=== PATIENT | male | born 2000 | race Caucasian/White ===

== ENCOUNTER → 2019-10-18 17:26 | Outpatient (CLI) | payer OTHER, SELFPAY | PROVIDERS: PCP Family Medicine; Referring Provider Family Medicine; Visit Provider Family Medicine | DX: Z20.828 Contact with and (suspected) exposure to other viral communicable diseases (principal) | CPT/HCPCS: 87635; C9803; U0003 ==

== ENCOUNTER 2020-08-18 09:00 | Outpatient (RCR) | payer OTHER, SELFPAY ==
--- NOTE | 2020-08-18 10:15 | BH.SGPN.GN ---
Behaviors/Verbalizations/Mental Status: [] Eye contact is good. Motor activity is appropriate. Appearance is neat. Speech is Appropriate. Mood is anxious. Affect is congruent. Thoughts are linear and logical. No evidence of psychosis. Client Response/Progress/Benefit: [] Pt was an active participant in group discussion and activity. Attentive during psychoeducation. Had difficulty staying on topic at times and often rambled. Engaged and provided feedback during activity where group had to identify 10 positives and 10 negatives of a picture. Provided thoughts on how one's perspective is formed and with the group identified several ways such as; upbringing, trauma, environment, friends, past events, fear, medical issues, physical pain, and mental health disorders. Along with her peers identified how one's perspective can negatively impact mental health treatment leading to; risky behaviors, suicidal thoughts, self-harming, isolation, avoiding treatment, shutting down, and can also cause one to stop taking medications. Provided input into how a positive or realistic perspective can help decrease depression, improve relationship, increase hope, and increase motivation. Increased awareness and discussion on the role that perspective has on mental health was beneficial. Will continue in IOP to maintain safety, prevent decompensation, and stabilize mood. Narrative Note: []
--- NOTE | 2020-08-18 11:01 | BH.COMM_ITS ---
Communication Note - Communication with Client Communication Note: Met with patient to completed initial paperwork. No si gnificant changes since pre-admission screening. Completed [facility]. Last suicidal thought occurred last week. Reports this was fleeting and passive in nature. Denies any plan or intent. Has hx of thoughts of methods, denies any current. Does not present as imminent danger. Protective factors. Future-oriented.
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
--- NOTE | 2020-08-19 09:00 | BH.SGPN.GN ---
Behaviors/Verbalizations/Mental Status: []Client alert and oriented, casually dressed and groomed. Eye contact good. Motor activity appropriate. Speech within normal limits. Affect constricted, mood anxious and sad. Thoughts linear, logical, no signs of hallucinations or delusions. Client Response/Progress/Benefit: []Client responded well to session, attentive and interrupting at times, but able to be redirected. Client recently started IOP and he hopes to work on reducing suicidal ideations and better managing his mental health symptoms. Client reports I have issues with keeping jobs and boundaries. Client stated he is always anxious but today he is also feeling a little sad. Appeared to benefit from the social aspect of group. Will continue IOP tx to prevent decompensation, increase impulse control, and learn healthy coping skills. Narrative Note: []
[2020-08-19 10:01] VITALS: BP 140/86; PULSE 100
--- NOTE | 2020-08-19 10:10 | BH.SGPN.GN ---
Behaviors/Verbalizations/Mental Status: []Client alert and oriented, casually dressed and groomed. Eye contact good. Motor activity appropriate. Speech within normal limits. Affect congruent. Mood euthymic. Thoughts linear, logical, no signs of hallucinations or delusions. Client Response/Progress/Benefit: []Client responded well to session, attentive and frequently contributing to discussion. Client worked with the group to identify factors that contributed to how we define ourselves. Client reported he has experienced the impacts of mental health stigma. Client reported mental health stigma has led him to denial of needing help because he didn't want to admit there was a problem. Client seemed to benefit from increased awareness of how mental health stigma can impact progress and self-worth. Client to continue IOP tx to improve daily functioning, improve interpersonal skills and prevent decompensation. Narrative Note: []
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
--- NOTE | 2020-08-19 12:51 | BH.DR.ITP ---
Initial Treatment Plan Patient Information Visit Information: ADMISSION DATE: EXPECTED LOS: 4-6 weeks Problems/Symptoms Problem #1:: Depression Symptom:: Sadness, worthlessness, hopelessness, shame, passive thoughts of , biological disruption of sleep, decreased appetite Problem #2:: Anxiety Symptom:: Worry, rumination
--- NOTE | 2020-08-20 09:05 | BH.SGPN.GN ---
Behaviors/Verbalizations/Mental Status: [] Eye contact is good. Motor activity is appropriate. Appearance is casual. Speech is Appropriate. Mood is anxious. Affect is congruent. Thoughts are linear and logical. No evidence of psychosis. Reviewed daily check in sheet and pt reports 2/5 for depression and 0/5 for risk. Client Response/Progress/Benefit: [] Pt was an active participant in group discussion. Attentive. Provided feedback to peers on several occasions. Daily symptom tracker noted 2/5 for depression and anxiety. Pt was very engaged and involved in group discussions and feedback with peers however did not share much about himself during the check-in. He mentioned that since starting IOP he has been doing well however attributes this primarily to not being home. States that he does have to return home this evening. He perceives his family to not be supportive and to blame him for many things. Emotion for today is anxious. Progress reported by patients. Benefited from group support and encouragement. Will continue in IOP to maintain safety, stabilize mood, and improve support and social skills. Narrative Note: []
--- NOTE | 2020-08-20 10:10 | BH.SGPN.GN ---
Behaviors/Verbalizations/Mental Status: [] Client alert and oriented, casually dressed and groomed. Eye contact good. Motor activity appropriate. Speech within normal limits, at times tangential. Affect congruent, mood anxious and euthymic. Thoughts linear, logical, no signs of hallucinations or delusions. Client Response/Progress/Benefit: [] Pt was an active participant in group discussion and completed group worksheet. Provided appropriate feedback and shared how learning how to manage his anger has been something that he struggles with but is actively working on. Group worked together to define anger and discussed the ways anger can impact one internally and externally. Pt reported that anger can be triggered by external situations, other people, and disappointment in oneself. Pt completed the iceberg exercise and identified emotions that tend to ?live under the surface? of anger. Pt also gained awareness of his typical responses to anger which included: shutting down, swearing, being sarcastic, or starting arguments. Pt acknowledges that anxiety or feeling dismissed often leads to anger for him. Benefited from group by increasing understanding of the impact of anger on mental health. Recommended continued tx to improve emotion regulation skills, prevent decompensation, and continue to work on improving social skills. Narrative Note: []
--- NOTE | 2020-08-20 15:39 | BH.MTP_ITS ---
Master Treatment Plan - Patient Information Program Physician:: Dr. Odonnell Primary Therapist:: Fely Delgado, [facility] - Psychiatric Diagnoses Psychiatric Diagnoses:: 1. Major depressive disorder, recurrent, severe without psychosis. 2. Generalized anxiety disorder. 3. ADHD. 4. Rule out Asperger's syndrome Diagnosis Code(s):: F33.2 - Estimated LOS Estimated LOS (in weeks):: 6 Problem/Goal #1 - Problem/Goal #1 Stated Goal:: Client will decrease depressive symptoms, isolation, and agitation due to Major Depressive Disorder through Intensive Outpatient Program.? Description of Barriers: Potential barriers include impulsivity, negative thought patterns, shame, and guilt. Functional Impact: Pt endorses feeling depressed, hopelessness, worthlessness, decreased sleep, poor motivation, decreased concentration. Pt reports anxious thoughts, ruminations, and racing thoughts. Mental health symptoms have impacted his ability to maintain employment. Pt has lost 10 jobs since graduating from high school. Pt's mental health symptoms impact his social and familial rel ationships. - Objectives Objective #1 Stated Objective: Client will learn and utilize 2-3 healthy coping strategies to manage depressive symptoms. Interventions: Therapist will utilize CBT techniques to assist client with understanding the connection between thoughts, feelings and behaviors. Education will be provided on behavioral activation. Therapist will assist client in learning internal coping strategies to manage depressive symptoms, along with helping client identify triggers. Discharge Criteria: Client will have achieved this goal when can verbalize and practiced at least 2 healthy coping strategies that successfully manage depressive symptoms. Target Date: 09/29/20 Review Date: 09/15/20 Objective #2 Stated Objective: To develop at least 3 skills that are important for effective social functioning. Interventions: Explaining the relationship between events and one?s behavior and their consequences. Assisting pt with understanding the inappropriateness of one?s behavior, including the assumptions and emotions that form that behavior, and then generating potential solutions. Teaching pt interpersonal skills. Discharge Criteria: Pt has met this goal when can identify and successfully utilize at least 3 skill that improve social functioning. Target Date: 09/29/20 Review Date: 09/15/20 Problem/Goal #2 - Problem/Goal #2 Stated Goal:: Stabilize anxiety level while increasing ability to function on daily basis.? Description of Barriers: Potential barriers include impulsivity, negative thought patterns, shame, and guilt. Functional Impact: Pt endorses feeling depressed, hopelessness, worthlessness, decreased sleep, poor motivation, decreased concentration. Pt reports anxious thoughts, ruminations, and racing thoughts. Mental health symptoms have impacted his ability to maintain employment. Pt has lost 10 jobs since graduating from high school. Pt's mental health symptoms impact his social and familial relationships. - Objectives Objective #1 Stated Objective: Client will learn and implement 2-3 calming skills to reduce overall anxiety and manage anxiety symptoms.?? Interventions: Therapist will teach client calming/relaxation skills and how to apply these skills to everyday life.? Discharge Criteria: Client will have achieved this goal when can verbalize at least 2 calming strategies and have practiced techniques to help reduce anxiety. Target Date: 09/29/20 Review Date: 09/15/20 Objective #2 Stated Objective: Pt will decrease anxious symptoms AEB pt?s score on the DSM 5 cross-cutting measure improve pt?s daily functioning. Interventions: Through groups and individual therapy, pt will be provided education about anxiety?s impact on body and common physiological reaction to anxiety. Therapist will teach pt appropriate breathing techniques and build healthy coping skills to manage daily anxieties. Discharge Criteria: Pt will have met this goal when pt?s score on the DSM 5 cross cutting measure for anxiety has been decreased and per pt?s report daily functioning has improved. Target Date: 09/29/20 Review Date: 09/15/20
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
--- NOTE | 2020-08-24 10:15 | BH.SGPN.GN ---
Behaviors/Verbalizations/Mental Status: []Eye contact is good. Motor activity is appropriate. Appearance is casual. Speech is Appropriate. Mood is anxious. Affect is congruent. Thoughts are linear and logical. No evidence of psychosis. Client Response/Progress/Benefit: []Pt was an active participant in group discussion and activity. Attentive during psychoeducation on factors that build resiliency. Worked with peers to define resilience and shared ?resilience is not giving up and always bouncing back.? Along with peers also identified what could impact resilience which included: family, internal coping skills, beliefs, hope, and personality type. Pt reports support from his family and challenging negative thoughts make pt resilient. Pt benefited by increasing awareness on the role of resilience in mental health and factors that can help build resiliency. Will continue in IOP to increase impulse control, learn healthy coping skills, and increase healthy support. Narrative Note: []
--- NOTE | 2020-08-24 14:22 | BH.MDN_ITS ---
Multi-Disciplinary Note - Note 60-min Individual Time Started:: 11:10 Date: 08/24/20 Purpose of session/treatment goals addressed:: Purpose of session was to address goals 1 and 2 from MTP. Eye Contact:: Fair Motor Activity:: Appropriate Appearance:: Casual Speech:: Appropriate Mood:: Anxious Affect:: Full Staff Interventions:: Therapiast used open ended questions to elicit pt's current symptoms and stressors. Therapist reviewed homework of stopping and thinking before he says something that he is unsure is appropriate. Therapist used CBT techniques to help pt understand connection between thoughts, behaviors and feelings. Problem solved with pt about upcoming stressor. Coached pt throughout session on appropriate interpersonal skills. Provided support by using active listening and providing feedback. Client Response:: Pt reported when he was in a depressed state a few days ago he often gets stuck in his head. Pt stated he starts to feel like nothing is going to get better and he will never be happy. Pt stated today he is able to recogniz e those thoughts are irrational but struggles with seeing that in the moment. Responded well to education about connection between thoughts, behaviors and emotions. Pt shared feeling anxious about going to visit his aunt and cousin. Pt reported he needs to have a conversation with his aunt about his criminal history because he isn't supposed to be alone with minors. Pt stated his cousin is 14 years old and would like to hang out but needs permission from his aunt. Pt reported he had a panic attack this morning when thinking about having this conversation. Pt responded well to problem solving and support from therapist. Pt agreed he is going to have to have difficult conversations in order to build his support system. Risks/Concerns:: Denies suicidal/homicidal ideation, plan or intention to date. Progress Toward Goals/Plan:: Progress noted with pt reporting use of his visual aid stop sign to help him think before he talks. Pt reports improved mood and increased self-awareness. Pt continues to struggle with interpersonal skills, bouts of depression, and anxiety. Pt to continue IOP to increase consistent use of coping skills, challenge distorted thoughts and prevent decompensation. Time Stopped:: 12:10
--- NOTE | 2020-08-26 09:00 | BH.SGPN.GN ---
Behaviors/Verbalizations/Mental Status: []Eye contact is good. Motor activity is appropriate. Appearance is casual. Speech is Appropriate-interrupting at times. Mood is euthymic. Affect is full. Thoughts are linear and logical. No evidence of psychosis. Reviewed daily check in sheet and pt denies any suicidal ideations or thoughts of today. Client Response/Progress/Benefit: []Client responded well to session, attentive and giving feedback to peers. Client reports feeling eager this morning as client's mood has improved, he no longer feels suicidal, and he gained additional healthy supports recently. Client shared that earlier this week he was suicidal, but getting out of the house and coming to IOP has helped. Client reports his biggest stressor is finding a job which client reports is hard with his legal background. Appeared to benefit from reflecting on positives and progress noted in reduced SI. Will continue IOP tx to promote mood stability and gain healthy coping skills. Narrative Note: []
--- NOTE | 2020-08-26 11:15 | BH.SGPN.GN ---
Behaviors/Verbalizations/Mental Status: []Client alert and oriented, casually dressed and groomed. Eye contact good. Motor activity appropriate. Speech within normal limits. Affect congruent, mood euthymic. Thoughts linear, logical, no signs of hallucinations or delusions. Client Response/Progress/Benefit: []Client engaged in session AEB listening attentively to others and providing input throughout discussions. Client remained attentive during discussion about the 4 A's of managing stress and discussed connecting with the various benefits of each. Client reported he would like to work on the skill of accepting what is out of his control. Client stated this will be helpful to decrease stress because he often ruminates on what is out of his control. Client seemed to benefit from increased awareness of the impact of stress on mental health and increasing repertoire of stress management strategies. Will continue IOP tx to prevent decompensation, improve interpersonal skills, and increase healthy coping skills. Narrative Note: []
--- NOTE | 2020-08-26 12:15 | PCM.BH.PN_ITS ---
Progress Note Progress Note: History of Present Illness/Interim History: [] The patient is a 20-year-old single male with a history of anxiety, depression and ADHD and possible Asperger's who is seen in follow-up at the [facility] behavioral health IOP program. I last saw the patient 1 week ago. The patient asked to be seen today as he feels that his sleep is not optimal. He states that it sometimes hard to get to sleep and sometimes he did he wakes up during the night. He feels that at times he is unable to sleep due to worrying but other times he is not sure why. He denies any caffeine use at all. He states that his mood has been good mostly in the past week. He still feels overall depressed and anxious. He feels less hopeless than a week ago and feels the program is benefiting him. He still has occasional passive thoughts that he would not care if he . He denies any suicidal ideation, plan for suicide, homicidal ideation, hallucinations, delusions or symptoms of bessie. Current Psychiatric Medications: [] Atomoxetine 40 mg p.o. twice daily; Paxil 30 mg p.o. daily (x1 year) Mental Status Examination: [] The patient is a 20-year-old male who appears normal for stated age and is casually dressed and groomed with good hygiene. He is pleasant and cooperative during the interview. Eye contact is good and speech is normal rate and rhythm and fluent with no pressure. Mood is mildly depressed. Affect is full and normal. Thought process is goal-directed and organized. Thought content: There is evidence of passive thoughts of but there is no evidence of suicidal or homicidal ideation or plan for suicide. There is no evidence of hallucinations, delusions or symptoms of bessie. Intelligence is average or above. Judgment is limited. Insight is limited but improving. Impulsivity is moderate to high. Diagnoses: [] 1. Major depressive disorder, recurrent, moderate 2. Generalized anxiety disorder 3. ADHD 4. Rule out asked Buerger's syndrome 5. Primary support, legal and work issues Plan: [] The patient will continue the IOP program in behavioral health as the structure, support, education and group therapy will hopefully prevent worsening of the patient's symptoms. He felt safe during the interview and if he does not feel safe at some time he will let us know or go to the emergency room. The risk, options, possible complications and side effects of the medications were again discussed with the patient and he understands and accepts these. Prescription was sent in for melatonin 10 mg p.o. nightly to help with the patient sleep. He has taken trazodone in the past and does not wish to take it again as he felt hung over on it. I will see the patient in follow-up in 2 weeks. He will continue to follow-up with his outpatient providers.
--- NOTE | 2020-08-27 09:01 | BH.SGPN.GN ---
Behaviors/Verbalizations/Mental Status: []Pt eye contact good, casually dressed, motor activity appropriate, speech normal rate and tone, mood euthymic, congruent affect, thoughts linear and intact, no evidence of delusions or hallucinations. Reviewed client?s symptom tracker, no signs of suicidal ideation, plan, or intent as of today. Client Response/Progress/Benefit: []Pt responded well to session AEB pt listening attentively to peers, and openly sharing thoughts and feelings. Pt shared mental health positive as showering this morning, brushing teeth, and completing personal hygiene. Pt reported additional mental health positive as sleeping well last night, which he stated has been a struggle for him. Pt shared he gained more support from his aunt and cousin. Pt stated his conversation about his past legal history with his aunt went very well and is relieved to have more support. Pt seemed to benefit from expressing thoughts. Pt to continue IOP to improve healthy coping skills, practice interpersonal skills and prevent decompensation. Narrative Note: []
--- NOTE | 2020-08-27 10:02 | BH.SGPN.GN ---
Behaviors/Verbalizations/Mental Status: []Eye contact is good. Motor activity is appropriate. Appearance is casual. Speech is Appropriate. Mood is anxious, euthymic. Affect is congruent. Thoughts are linear and logical. No evidence of psychosis. Client Response/Progress/Benefit: [] Pt was an attentive participant and actively engaged throughout group discussion and activity. Did well to share the floor with fellow participants. Attentive during psychoeducation and taking notes. Reflected connecting with topic of personal pitfalls and how they can impede mental health treatment progress. Pt shared that avoidance could lead to continuing to maintain depression. Expressed ?stress can lead to change? by providing us with more motivation. Pt and peers provided examples of personal pitfalls or setbacks that impact mental health which included; isolation, avoidance, procrastination, denial, poor self-care, and ruminating on externals. During experiential activity pt along with peers identified several pitfalls from the activity that are also associated with mental health which included; poor communication, assumptions, lack of awareness, negative self-talk, fear of failure, and personalizing. Did well to take direction and feedback from peers during experiential activity. Benefited from group by increasing awareness of pitfalls which can impact mental health. Pt will continue in [facility] to continue to work on socialization, further improve mood stability, and promote healthy skill application. Narrative Note: []
--- NOTE | 2020-08-27 11:00 | BH.SGPN.GN ---
Behaviors/Verbalizations/Mental Status: []Client alert and oriented, casually dressed and groomed. Eye contact good. Motor activity appropriate. Speech within normal limits. Affect constricted, mood dysthymic. Thoughts linear, logical, no signs of hallucinations or delusions. Client Response/Progress/Benefit: []Client receptive of session, engaged throughout AEB client actively listening and contributing to discussion, as well as taking notes. Client completed worksheet identifying personal pitfalls impacting mental health progress. Client identified the following pitfalls: isolation, lack of self-care, shame, mind-reading, and what if thinking. Group learned different coping skills to help manage pitfalls. Client will work on overcoming isolation and lack of self-care by establishing a routine and using opposite action. Benefited from identifying personal pitfalls and strategies to overcome these pitfalls. Will continue IOP tx to increase impulse control skills, gain awareness, and gain healthy supports. Narrative Note: []
--- NOTE | 2020-08-31 09:00 | BH.SGPN.GN ---
Behaviors/Verbalizations/Mental Status: []Client alert and oriented, casually dressed and groomed. Eye contact good. Motor activity restless. Speech within normal limits for client. Affect constricted, mood euthymic and anxious. Thoughts linear, logical, no signs of hallucinations or delusions. Reviewed client?s symptom tracker, no risk for suicidal ideation, plan, or intent as of 08/31/20 Client Response/Progress/Benefit: []Client responded well to session, providing input to peers and redirected when needed. Client reports feeling anxious and optimistic this morning. Client stated he is always anxious but he cannot remember a specific stressor at the moment. Client shared his weekend was really good as client had time for self-care and he made a new friend recently. Client also has been using his deep breathing skills and he brushed his teeth this morning. Appeared to benefit from reflecting on application of coping skills. Can continue to work on impulse control and healthy boundaries. Will continue IOP tx to promote mood stability, gain healthy coping skills, and gain healthy support. Narrative Note: []
--- NOTE | 2020-08-31 10:15 | BH.SGPN.GN ---
Behaviors/Verbalizations/Mental Status: [] Eye contact is good. Motor activity is appropriate, at times appearing restless. Appearance is casual. Speech is Appropriate. Mood is anxious, euthymic. Affect is congruent. Thoughts are linear and logical. No evidence of psychosis. Client Response/Progress/Benefit: [] Pt was an active participant in group discussion and activity. Attentive during psychoeducation on external coping skills and how coping skills can positively and negatively impact mental health. Reported often struggling to remind himself that ?If we have a load too heavy for us to carry, it?s okay to let others help to carry it.?. Provided insight into consequences this has had on mental health by isolating or minimizing. Pt along with peers provided their thoughts and insights on the definition of coping skills. Pt worked with peers to identify barriers to using healthy coping skills which included; it?s easier, comfortable, habitual, or they don?t know other ways of coping. Worked within small group to complete challenge activity requiring use of several coping skills. Did well to provide and receive supportive feedback. Benefited from increased awareness of coping skills, benefits in using healthy coping skills, and common coping skill barriers. Will continue in IOP to improve social skills, stabilize mood, and increase heathy coping. Narrative Note: []
--- NOTE | 2020-08-31 11:15 | BH.SGPN.GN ---
Behaviors/Verbalizations/Mental Status: []Client alert and oriented, casual dress, hygiene tended to. Eye contact good. Motor activity appropriate. Speech within normal limits. Affect congruent, mood euthymic. Thoughts linear, logical, no signs of hallucinations or delusions. Client Response/Progress/Benefit: []Client responded well to session, actively listening and providing examples. Group discussed the different categories of coping skills which included distraction, emotional release, grounding, self-love, and thought challenging. Client participated in creating a coping skills ?menu? from the five categories of coping skills. Client's coping skill menu included: walking, exercise, music, earthing, identifying wins, and boundaries. Appeared to benefit from increasing repertoire of healthy coping skills. Will continue tx to continue practicing interpersonal skills, consistent use of healthy coping and prevent decompensation.
--- NOTE | 2020-09-01 10:16 | BH.SGPN.GN ---
Behaviors/Verbalizations/Mental Status: [] Client alert and oriented, casually dressed and groomed. Eye contact good. Motor activity restless. Speech within normal limits. Affect congruent, mood anxious. Thoughts linear, logical, no signs of hallucinations or delusions. Client Response/Progress/Benefit: [] Pt actively engaged in group discussion on conflict and the potential benefits of healthy approaches to conflict on mental health as well as barriers in taking a healthy approach to conflict resolution. Pt connected to fellow participants as they reflected on quote. Shared ?conflict can sometimes create a greater urgency to learn ways to cope?. Pt attentive and engaged during psychoeducation about different conflict styles (avoidant, accommodating, cooperative, and competing). Pt identified most often uses avoiding styles for conflict, noting ??I?m definitely avoiding at home. I don?t like the environment, so I just go up to my room and lock myself in my room?. Seemed to benefit from increased awareness of the different conflict styles. Pt to continue IOP to continue use of healthy coping skills, continue improving mood stability and social skills, and prevent decompensation. Narrative Note: []
--- NOTE | 2020-09-01 11:15 | BH.SGPN.GN ---
Behaviors/Verbalizations/Mental Status: []Client alert and oriented, casually dressed and groomed. Eye contact good. Motor activity appropriate. Speech within normal limits. Affect constricted, mood anxious. Thoughts linear, logical, no signs of hallucinations or delusions. Client Response/Progress/Benefit: []Client engaged in session AEB contributing to discussion and engaging in activity. Client did well to review current conflict style and its impact on mental health. Attentive and taking notes during discussion on strategies for more effectively managing conflict in personal life. Client identified that avoiding is his ?default? conflict resolution type. Client wants to work on changing this by expressing his feelings and needs through words and avoiding degrading language when addressing conflict. Appeared to benefit from gaining strategies to help client better manage conflict. Will continue IOP tx to improve emotional regulation skills, increase impulse control, and gain healthy support. Narrative Note: []
--- NOTE | 2020-09-01 15:55 | BH.MDN_ITS ---
Multi-Disciplinary Note - Note 60-min Individual Time Started:: 09:00 Date: 09/01/20 Purpose of session/treatment goals addressed:: Purpose of session was to address goals 1 and 2 from MTP. Eye Contact:: Good Motor Activity:: Appropriate Appearance:: Casual Speech:: Appropriate, Pressured - at times Mood:: Euthymic, Anxious Affect:: Congruent Thoughts:: Logical, Racing, No evidence of hallucinations/delusions noted Staff Interventions:: Therapist used open ended questions to elicit pt's current symptoms and stressors. Reviewed interpersonal skills and cautioned pt to not interact with current IOP pt's. Assisted pt with managing stressor of intera ctions with parents. Elicited goal for week. Provided support by using active listening and providing feedback. Client Response:: Pt reported last night he could not sleep which made his mind wander. Pt stated when he has down time is when he struggles with negative thoughts the most. Pt reported continuing to struggle with reframing negative thoughts in the moment. Pt shared he has become friends with a group member in [facility]. Pt expressed understanding of the importance of making sure he respects boundaries in his interactions with this person. Therapist discouraged pt from forming friendships with people that are current patients of IOP. Pt responded well to reviewing interpersonal skills. Pt expressed frustration with his home environment because his dad will often throw his legal history into his face. Pt stated his dad will make comments about pt should move out then say oh wait you can't do that as a way to make fun of pt not being able to get a job or find housing due to his sexual offender registration. Pt reported he tries to ignore the comments but it becomes difficult. Pt open to learning about strateiges to help him manage emotions while at home. Pt reported he has been strugglign with completing his goal of practicing grounding tools. Pt stated he will maintain this goal because he knows he needs to work on being int he present moment more often. Risks/Concerns:: Denies current suicidal/homicidal ideation, plan or intention to date. Progress Toward Goals/Plan:: Progress noted with pt continuing to report focus on impulse control by using strateiges he has learened in group and individual sessions. Pt problems ongoing with low motivation, decreased energy, and anxiety. Pt to continue IOP to increase consistent use of healthy coping, challenge distorted thoughts and prevent decompensation. Time Stopped:: 10:00
--- NOTE | 2020-09-03 09:00 | BH.SGPN.GN ---
Behaviors/Verbalizations/Mental Status: []Pt eye contact good, casually dressed, motor activity appropriate, speech normal rate and tone, mood euthymic, congruent affect, thoughts linear and intact, no evidence of delusions or hallucinations. Reviewed client?s symptom tracker, no signs of suicidal ideation, plan, or intent as of today. Client Response/Progress/Benefit: []Pt responded well to session AEB pt openly sharing thoughts and listening attentively to others. Pt stated he has been working on his goal of practicing grounding tools to increase being in the present moment. Pt stated additional mental health positive as brushing teeth and showering this morning. Pt reported personal hygiene tasks are still difficult for him and has to use opposite action. Pt shared stressor is not being able to find a job because his legal history is a significant barrier. Pt reported additional stressor as home environment because parents make hurtful comments to him about his legal history and not being able to get a job. Pt seemed to benefit from support from group. Pt is to continue IOP to continue use of healthy coping skills, challenge negative thoughts and prevent decompensation. Narrative Note: []
--- NOTE | 2020-09-03 10:10 | BH.SGPN.GN ---
Behaviors/Verbalizations/Mental Status: [] Eye contact is good. Motor activity is appropriate. Appearance is casual. Speech is Appropriate. Mood is anxious. Affect is full. Thoughts are linear and logical. No evidence of psychosis Client Response/Progress/Benefit: [] Pt was an active participant in group discussion and activity. Attentive during psychoeducation on the 5 stages of change. Pt provided insight while group worked to identify barriers to change which included; being complacent, fear of the unknown, being uncomfortable, fearful that any change will be overwhelming, accustomed to current life, and knowing what to expect (even if its negative) is comfortable. During activity group processed emotions commonly associated with change along with her peers. Emotions processed were exhausted, cautious, hopeful, frustrated, overwhelmed, confident, frightened, relief, and excitement. Benefited from increase awareness of the emotions associated with change and how these emotions can encourage or disrupt change. Will continue in IOP to maintain safety, increase healthy coping, improve functioning, and stabilize mood. Narrative Note: []
--- NOTE | 2020-09-03 11:12 | BH.SGPN.GN ---
Behaviors/Verbalizations/Mental Status: []Client alert and oriented, casually dressed and groomed. Eye contact good. Motor activity appropriate. Speech within normal limits. Affect constricted, mood euthymic. Thoughts linear, logical, no signs of hallucinations or delusions. Client Response/Progress/Benefit: []Client was an active participant, contributing to discussion and participating in the activity. Client participated during discussion and psychoeducation on the stages of change. Client struggled initially with coming up with a goal as client feels ?all my problems are external.? Client shared it is hard for him to make change because his biggest stressor is family, and client cannot change that. Client was receptive to working on using calming skills and focusing on his emotional response to family. Client identified personal barriers such as feeling overwhelmed and like he does not have control. Appeared to benefit from reflecting on the stages of change and the progress client has made. Will continue IOP tx to improve emotional regulation skills and increase self-awareness. Narrative Note: []
--- NOTE | 2020-09-07 08:57 | BH.SGPN.GN ---
Behaviors/Verbalizations/Mental Status: []Eye contact is good. Motor activity is appropriate. Appearance is casual. Speech is Appropriate. Mood is reported as depressed and hopeless. Affect is incongruent as client is very talkative and providing supportive feedback and making jokes with peers. Thoughts are linear and logical. No evidence of psychosis. Reviewed daily check in sheet and client reports suicidal ideations as a 5/5 with 2/5 for intent. Higher than baseline and will check-in with individual therapist to further assess risk Client Response/Progress/Benefit: []Pt was an attentive participant AEB actively listening, providing supportive feedback, as well as willingness to process with group. Client reports emotion for the day as ?hopeless? , however this is not congruent with affect as client is joking and appears very bright throughout session. Smiling as he discusses feeling depressed and belittles by his family. Expressed attempting to communicate his concerns and establish boundaries in the past with limited success. Did well to identify that he can not control his family?s thoughts or behaviors, but can only continue to work on himself and advocate for his mental health needs. Did well to identify mental health wins which included getting a gym membership and going o workout, as well as acknowledging ?I am doing what I can to become a better person even if my family doesn?t see it?. Provided supportive feedback to peers throughout and benefited from group support, encouragement, and feedback. Will continue in IOP to continue to improve mood stability, further promote healthy coping behaviors, and prevent decompensation. Narrative Note: []
--- NOTE | 2020-09-07 10:10 | BH.SGPN.GN ---
Behaviors/Verbalizations/Mental Status: [] Eye contact is good. Motor activity is appropriate. Appearance is casual. Speech is Appropriate. Mood is anxious/irritable. Affect is congruent. Thoughts are linear and logical. No evidence of psychosis. Client Response/Progress/Benefit: [] Pt was an active participant in group discussion and activity. Attentive during psychoeducation. Participated and provided insight along with peers on obstacles or potholes that hinder our ability to communicate in stressful situations. Group identified the following obstacles; impulsivity (reacting to fast to comments and situations), mental health struggles, physical health struggles (headaches, pain, poor sleep), toxic or unhealthy relationship patterns, work/responsibilities (feeling overwhelmed), lack of proper self-care on our part, and negative thinking patterns (mind-reading, catastrophizing). Pt provided insight on how emotion and mood can impact effective communication. Pt initially struggled in experiential activity and was visibility stressed which impacted his ability to communicate. Responded well to feedback from peers. Benefited from increased awareness on how our emotions impact our communication. Will continue in IOP to maintain safety, increase healthy coping skills, increase social skills, and prevent decompensation. Narrative Note: []
--- NOTE | 2020-09-07 11:10 | BH.SGPN.GN ---
Behaviors/Verbalizations/Mental Status: []Client alert and oriented, casually dressed and groomed. Eye contact fair. Motor activity restless. Speech within normal limits. Affect constricted, mood anxious and irritable. Thoughts linear, logical, no signs of hallucinations or delusions. Client Response/Progress/Benefit: []Client engaged in session AEB client listening attentively to peers and providing input. Attentive during psychoeducation on 4 zones of regulation. Client able to identify feelings and behaviors for each zone. Client identified coping skills one can use to support self in each zone which included: opposite action, exercise, journaling, reaching out to support, and grounding skills. Client stated belief that he is in the green zone currently, but he was in the yellow and almost red zone during the group activity. Client stated he thinks he needs a nap today for self-care because ?I accomplished a lot this morning.? Benefited from increased education on zones of regulation or stages of alertness for emotions and healthy coping skills to use for each zone. Will continue IOP tx to increase emotional awareness and self-regulation skills. Narrative Note: []
--- NOTE | 2020-09-09 09:00 | BH.SGPN.GN ---
Behaviors/Verbalizations/Mental Status: []Client alert and oriented, casually dressed and groomed. Eye contact good. Motor activity appropriate. Speech within normal limits-some inappropriate comments. Affect congruent, mood euthymic. Thoughts linear, logical, no signs of hallucinations or delusions. Reviewed client?s symptom tracker, no risk for suicidal ideation, plan, or intent as of 09/09/20 Client Response/Progress/Benefit: []Client responded well to session, attentive and providing support to peers. Client reports feeling hopeful this morning as client has a job interview this week. Client stated in the past he would be ruminating about the interview, but he has been keeping himself busy and not thinking about it which has been helpful. Client shared he has also been doing better with doing chores at home. Client's biggest stressor right now is the job interview and worrying about his legal background. Progress noted in client's improved mood and increased social awareness. Will continue IOP tx to increase impulse control, gain healthy coping skills, and improve daily functioning. Narrative Note: []
--- NOTE | 2020-09-09 10:15 | BH.SGPN.GN ---
Behaviors/Verbalizations/Mental Status: [] Eye contact is good. Motor activity is appropriate. Appearance is casual. Speech is Appropriate. Mood is anxious. Affect is congruent. Thoughts are linear and logical. No evidence of psychosis. Client Response/Progress/Benefit: [] Pt was an active participant in group activity and discussion. Attentive during psychoeducation on fixed mindset. Pt along with her peers provided insight on the aspects of a fixed mindset which included; being rigid, absolute thinking, why bother perspective, no confidence that one can succeed, and thoughts that one will never get better. Pt and peers were presented with a task which was meant to seem impossible. Pt identified common fixed mindset statements that she often uses which are No one likes me and I have no friends. Benefited from education on fixed mindset and how it impacts mental health. Will continue in IOP to maintain safety, increase healthy coping, improve social skills, and prevent decompensation. Narrative Note: []
--- NOTE | 2020-09-09 11:15 | BH.SGPN.GN ---
Behaviors/Verbalizations/Mental Status: [] Client alert and oriented, casually dressed and groomed. Eye contact good. Motor activity appropriate. Speech within normal limits. Affect congruent. mood anxious and agitated. Thoughts linear, logical, no signs of hallucinations or delusions. Client Response/Progress/Benefit: [] Client engaged during activity and discussion AEB providing input and taking notes throughout. Client did well to remain attentive as group worked on identifying characteristics and benefits of adopting a growth mindset. Did well to work with fellow participants in reframing the example fixed thoughts into growth mindset thoughts, providing supportive feedback and suggestions to peers throughout. Client worked in small group to apply skills learned to reframe own personal fixed thoughts. However, struggled significantly to transfer the thought reframing skills learned to his own negative thoughts. Willing to have fellow participants assist in reframing his thought of ?No one likes me?. Continued work is encouraged to aid in improving independent thought reframing skills. Will continue IOP tx to continue to promote active thought challenging and skill application, maintain stability, as well as improve healthy coping repertoire. Narrative Note: []
--- NOTE | 2020-09-09 11:56 | PCM.BH.PN ---
Progress Note Progress Note: History of Present Illness/Interim History: [] The patient is a 20-year-old male with a history of anxiety, depression, ADHD and possible Asperger's syndrome who is seen in follow-up at the [facility] behavioral health IOP program. I last saw the patient 2 weeks ago and at that time melatonin was added to help improve his sleep. He feels that the melatonin has helped his sleep and is getting about 8 or 9 hours a night. He has been consistent and engaged in treatment and he feels he is really benefited from the IOP program. He still struggles at times with being socially inappropriate at times. His mood is better but still is depressed on occasion. He has much less hopelessness than he did a few days ago. He is a little nervous about leaving the IOP program but understands that he may do the aftercare program and he he will have a therapist when he is discharged from here. He is a little nervous about a job interview in 2 days because he has to discuss his background and the trouble he got in. He has plans to get tested to rule out autism when he stood in the program. Current Psychiatric Medications: [] Atomoxetine 40 mg p.o. twice daily; Paxil 30 mg p.o. daily; melatonin 10 mg p.o. nightly Mental Status Examination: [] The patient is a 20-year-old male who appears normal for stated age and is casually dressed and groomed with good hygiene. He has no psychomotor agitation or retardation. He is pleasant and cooperative during the interview. Eye contact is good and speech is normal rate and rhythm and fluent with no pressure. Mood is mildly depressed. Affect is full and normal. Thought process is goal-directed and organized. Thought content: There is no evidence of passive thoughts of , suicidal or homicidal ideation. There is no evidence of hallucinations, delusions or symptoms of bessie. Judgment is improving but limited at times. Insight is limited but improving. Impulsivity is moderate to high. Diagnoses: [] 1. Major depressive disorder, recurrent, moderate 2. Generalized anxiety disorder 3. ADHD 4. Rule out Aspbergers syndromw 5. Primary support, legal and work issues Plan: [] The patient will continue the IOP program in behavioral health as the structure, support, education, and group therapy will hopefully prevent worsening of the patient's symptoms. He felt safe during the interview and if it anytime he does not feel safe he will let us know or go to the emergency room. The risks, options, possible complications and side effects of the medications were again discussed with the patient and he understands and accepts these. No medication changes were made today. I will see the patient in follow-up as needed and he will continue to follow-up with his outpatient providers.
--- NOTE | 2020-09-10 08:55 | BH.SGPN.GN ---
Behaviors/Verbalizations/Mental Status: []Eye contact is good. Motor activity is appropriate. Appearance is casual. Speech is Appropriate. Mood is anxious. Affect is congruent. Thoughts are linear and logical. No evidence of psychosis. Reviewed daily check in sheet and client denies suicidal ideations. denies plan or intent. Client Response/Progress/Benefit: []Pt was an attentive participant AEB actively listening, providing supportive feedback, as well as willingness to process with group. At times struggled with interrupting others, though receptive of constructive feedback and redirection. Client reports emotion for the day as ?depressed and also hopeful? and indicated that this is due to ongoing stressors in his life but also being able to begin to see progress in his ability to cope with them. Expressed not wanting to return home following group so he took the opportunity to go for a walk around town and practice some of his mindfulness skills. Noted this was a positive experience and aided in improving his ability to combat negative thoughts and focus more on enjoying the present moment. Expressed being more able to identify strategies for improving his home environment for the night as a result. Client noted spending time with his dog which was enjoyable. Current stressor is an upcoming job interview as client is excited to be interviewing for a job but anxious about not being able to secure employment. Benefited from group support, encouragement, and feedback. Will continue in IOP to further promote healthy coping behaviors, stabilize mood and prevent decompensation. Narrative Note: []
--- NOTE | 2020-09-10 10:00 | BH.SGPN.GN ---
Behaviors/Verbalizations/Mental Status: [] Eye contact is good. Motor activity is appropriate. Appearance is casual. Speech is Appropriate. Mood is anxious. Affect is congruent. Thoughts are linear and logical. No evidence of psychosis Client Response/Progress/Benefit: [] Pt was an active participant in group discussion and activity. Attentive during psychoeducation. Pt did not draw his current and desired reality instead opting to verbally describe it to peers. He depicted his current reality as being stuck, making poor choices, and being at the bottom of a pit. Feelings of worthlessness and hopelessness due to being unable to maintain a job and move out on his own. HIs desired reality is living on his own, being independent, and having a stable job. Also having close friends and mental health impacting him less. Benefited from increased awareness of current mental state and goals. Will continue in IOP to maintain safety, improve social skills, and increase healthy coping. Narrative Note: []
--- NOTE | 2020-09-10 11:10 | BH.SGPN.GN ---
Behaviors/Verbalizations/Mental Status: []Client alert and oriented, casual dress, hygiene tended to. Eye contact good. Motor activity appropriate. Speech within normal limits. Affect congruent, mood euthymic. Thoughts linear, logical, no signs of hallucinations or delusions. Client Response/Progress/Benefit: []Client engaged during activity and provided ideas on how to cope with internal barriers that keep clients stuck from moving towards goals. Client able to identify barriers to desired reality. Identified barriers to current reality to include: self-sabotage, fear, lack of self-care, isolation and poor boundaries. Client stated will work on decreasing fear by using grounding tools to stay in the moment. Benefited from group by identifying obstacles and solutions to desired reality. Will continue IOP tx to prevent decompensation, improve interpersonal skills and increase healthy coping skills. Narrative Note: []
== END 2020-09-12 23:59 ==
LOC: BHIOP 09:00
PROVIDERS: PCP Family Medicine; Referring Provider Psychiatry & Neurology Psychiatry; Visit Provider Psychiatry & Neurology Psychiatry
DX: F33.2 Major depressive disorder, recurrent severe without psychotic features (principal); F41.1 Generalized anxiety disorder; F90.9 Attention-deficit hyperactivity disorder, unspecified type; Z79.899 Other long term (current) drug therapy; Z62.810 Personal history of physical and sexual abuse in childhood; Z62.811 Personal history of psychological abuse in childhood; Z81.8 Family history of other mental and behavioral disorders
CPT/HCPCS: S9480; 90834; 90837; 90853

== ENCOUNTER 2020-09-14 07:48 | Outpatient (RCR) | payer OTHER, SELFPAY ==
[2020-09-13 00:37] VITALS: BP 140/86; PULSE 100
--- NOTE | 2020-09-14 09:04 | BH.PSA ---
Suicide Assessment Treatment Plan Recommendations
--- NOTE | 2020-09-14 09:04 | BH.PSA_ITS ---
Suicide Assessment Treatment Plan Recommendations
--- NOTE | 2020-09-14 10:05 | BH.SGPN.GN ---
Behaviors/Verbalizations/Mental Status: []Client alert and oriented, casually dressed and groomed. Eye contact good. Motor activity WNL. Speech within normal limits. Affect congruent, mood anxious and euthymic. Thoughts linear, logical, no signs of hallucinations or delusions. Client Response/Progress/Benefit: []Client responded well to session, attentive and engaged throughout discussion and activity. Agreed with session quote and shared that fear has led to self-sabotage and giving up in the past. The group discussed how mindset and one?s reaction to setbacks determines progress. Client shared past disappointments, negative self-talk, other?s comments, and fixed thoughts has reinforced fear of failure in the past. Shared this has led to client to assume things won?t work, become angry, and feeling more depressed as a result. Client appeared to benefit from gaining awareness of the impact fear of failure can have on one?s mental health and wellbeing. Progress noted as client continues to improve appropriateness of engagement in group setting, gain insight and coping skills which have improved overall ability to manage emotions and more appropriately socialize with others, though continues to struggle at times with this. Will continue IOP to reduce symptoms, combat distortions, promote healthy boundaries, and improve daily functioning. Narrative Note: []
--- NOTE | 2020-09-14 11:10 | BH.SGPN.GN ---
Behaviors/Verbalizations/Mental Status: []Client alert and oriented, casually dressed and groomed. Eye contact good. Motor activity appropriate. Speech within normal limits. Affect constricted, mood uneasy. Thoughts linear, logical, no signs of hallucinations or delusions. Client Response/Progress/Benefit: []Client responded well to session, engaged during activity and discussion. Client completed the fear of failure worksheet and reported that fear of failure has kept client from dating, making new friends, and setting boundaries. Client able to identify thoughts and behaviors that reinforce personal fear of failure which included: negative self-talk, ruminating, and oversharing. Client attentive during discussion of the different strategies to help overcome fear of failure. Identified wanting to work on increasing self-care to overcome fear of failure. Appeared to benefit from identifying strategies with peers. Will continue IOP tx to promote mood stability, increase impulse control skills, and improve self-confidence. Narrative Note: []
--- NOTE | 2020-09-14 14:53 | BH.MDN ---
Multi-Disciplinary Note - Note 60-min Individual Time Started:: 08:55 Date: 09/14/20 Purpose of session/treatment goals addressed:: Purpose of session was to address goal 1 from MTP. Eye Contact:: Good Motor Activity:: Appropriate Appearance:: Casual Speech:: Appropriate Mood:: Euthymic, Anxious Affect:: Congruent Thoughts:: Linear, Logical, No evidence of hallucinations/delusions noted Staff Interventions:: Therapist used open ended questions to elicit pt's current symptoms and stressors. Therapist reviewed education about cognitive distortions, highlighting consequences of using absolutes. Role played social skills with pt to help prepare for conversation pt is to have his parents. Provided homework for pt to complete thought log to increase awareness of negative thought patterns. Provided support by active listening and providing feedback. Client Response:: Pt reported he has been struggling with depression that comes and goes. Pt stated when in a depressed state he has thoughts like I'm never going to get better and Never feel wanted. Pt reported he recognizes these thoughts are irrational but struggles with challenging negative thoughts in the moment. Pt reported he has been working on increasing his self-care with personal hygiene but his dad won't let him leave the house often so can't engage in other activities he would enjoy like hiking. Pt able to role play a conversation he would like to have with his parents about being allowed to get out of the house more often to engage in self-care. Pt responded well to feedback about being mindful about his tone of voice. Pt agreeable to complete thought log for homework. Risks/Concerns:: denies suicidal ideation, plan or intention to date. Progress Toward Goals/Plan:: Progress noted with pt reported improved self-care, continuing to work on interpersonal skills, and increased awareness of distorted and negative thought patterns. Pt continues to struggle with depressive thought patterns, impulsivity, interpersonal skills, and motivation. Pt to continue IOP to continue working on interpersonal skills, challenging negative thoughts and prevent decompensation. Time Stopped:: 10:00
--- NOTE | 2020-09-16 09:02 | BH.SGPN.GN ---
Behaviors/Verbalizations/Mental Status: []Client alert and oriented, casually dressed and groomed. Eye contact good. Motor activity restless, often struggling to remain seated. Speech pressured, interrupting others. Affect congruent, mood euthymic. Thoughts linear, logical, no signs of hallucinations or delusions. 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 Reports not taking his ADHD medication this morning and was experiencing significant difficulties with becoming distracted by self/own thoughts and interrupting others. Did well to momentarily remove himself from the environment to recollect himself and return when feeling calmer. Client reports feeling a mix of emotions this morning and expressed this is due to excitement about having the house to himself for the weekend but also feeling nervous about this. Explained that his family normally does not trust leaving client home alone but that they are going out of state and client is unable to go with them as he has not received his second COVID vaccine yet. Client expressed looking forward to having time for himself to practice self-care and prove to himself and his supports he can manage an increase in independence. Shared however struggling with temptation to do something over the weekend that he knows is self-sabotage. Willing to identify potentially damaging his parent?s trust by doing so and ultimately creating additional unnecessary stressors. Identified healthy alternative activities he can engage in instead. Progress noted in reports of improved skill application and reduced depression but continues to struggle with consistent mood stability and boundaries. Will continue IOP tx to prevent decompensation, continue to improve mood stability, and improve ability to establish and adhere to other?s boundaries. Narrative Note: []
--- NOTE | 2020-09-16 10:15 | BH.SGPN.GN ---
Behaviors/Verbalizations/Mental Status: [] Eye contact is good. Motor activity is appropriate. Appearance is casual. Speech is Appropriate. Mood is anxious. Affect is congruent. Thoughts are linear and logical. No evidence of psychosis. Client Response/Progress/Benefit: [] Pt was an active participant in group discussion and activity. Attentive during psychoeducation. Pt provided feedback and insight into reasons that people take action to improve mental wellness which included; benefits outweigh the risks, distress so long that one has to do something, hopeless and need options, and external motivations. Group members were able to identify what exactly taking action meant to them which included; starting and showing up to IOP and mental health treatment, taking medications, utilizing skills, and making an effort. Pt identified the obstacles that are holding him back from taking action which were shame, guilt, anxiety, stress, and fear of failure. Benefited from increase awareness of the importance of taking action as well as obstacles that impact him from taking actions. Will continue in IOP to maintain safety, increase health coping and social skills, and prevent decompensation. Narrative Note: []
--- NOTE | 2020-09-16 11:15 | BH.SGPN.GN ---
Behaviors/Verbalizations/Mental Status: []Client alert and oriented, casually dressed and appropriately groomed. Eye contact good. Motor activity appropriate. Speech within normal limits. Affect congruent, mood agitated. Thoughts linear, logical, no signs of hallucinations or delusions. Client Response/Progress/Benefit: []Client responded well to session, taking notes and participating in worksheet discussion. Client set a goal to gain control over fear of failure and shame. Client reports belief that his fear of failure and shame ?play into each other.? Client wants to be able to work on this by first learning more about what shame is and how it manifests by spending 10 minutes a day researching shame. Client stated to help accomplish this goal client will listen to podcasts and watch tedtalks. Progress noted in client?s reduced interruptions during group. Appeared to benefit from identifying a small goal to benefit mental health. Will continue IOP tx to improve daily functioning, further improve impulse control, and increase self-confidence. Narrative Note: []
--- NOTE | 2020-09-17 09:00 | BH.SGPN.GN ---
Behaviors/Verbalizations/Mental Status: []Eye contact is good. Motor activity is appropriate. Appearance is casual. Speech is Appropriate. Mood is depressed. Affect is flat. Thoughts are linear and logical. No evidence of psychosis. Reviewed daily check in sheet and pt denies any suicidal ideations or thoughts of . Client Response/Progress/Benefit: []Client responded well to session, appropriate feedback and less interrupting which is desired by client. Client reports feeling excited this morning because he got the job he recently interviewed for after struggling to find employment. Client reports his parents will be away this weekend which is a stressor and a positive. Client shared he is proud of himself for setting my first ever boundary. Client has been working on increasing impulse control and creating healthy boundaries. Client's biggest stressor right now is waiting to schedule his drug test so he can get started at work. Appeared to benefit from giving feedback to peers and reflecting on personal growth. Will continue IOP tx to promote mood stability, further improve social skills, and increase emotional regulation skills. Narrative Note: []
--- NOTE | 2020-09-17 10:00 | BH.SGPN.GN ---
Behaviors/Verbalizations/Mental Status: [] Eye contact is good. Motor activity is appropriate. Appearance is casual. Speech is Appropriate. Mood is anxious. Affect is congruent. Thoughts are linear and logical. No evidence of psychosis. Client Response/Progress/Benefit: [] Pt was an active participant in group discussion. Attentive during psychoeducation on the impact of anxiety, benefits of anxiety, and the different anxiety disorders. Pt asked questions and was engaged during discussion on types of anxiety disorders (OCD, PTSD, Panic D/O, Agoraphobia, JANES, Acute Stress Disorder, and Phobias). Group worked together to identify a list of common signs of anxiety which included; feeling tense, shakiness, sweating, tight chest, upset stomach, feeling flush, SOB, increased heart rate, headache, numbness, etc). Group was primarily psychoeducational in nature and pt was attentive, engaged, and provided insight at times. Benefited from increased awareness of different types of anxiety disorders as well as benefits and importance of identifying physiological signs of anxiety. Will continue in IOP to maintain safety, improve health coping and social skill, and improve functioning. Narrative Note: []
--- NOTE | 2020-09-17 11:05 | BH.SGPN.GN ---
Behaviors/Verbalizations/Mental Status: []Client alert and oriented, casually dressed and groomed. Eye contact good. Motor activity appropriate. Speech within normal limits. Affect congruent, mood euthymic. Thoughts linear, logical, no signs of hallucinations or delusions. Client Response/Progress/Benefit: []Client was an active participant in group discussion and listened attentively to peers. Reviewed safety behaviors he engages in that reinforce anxiety. Attentive during psychoeducation on mindfulness coping skills and their impact on mental health wellness. Worked with group to identify healthy coping strategies to manage anxious symptoms. Client stated he is willing to practice progressive muscle relaxation, belly breathing and grounding. Appeared to benefit from learning healthy skills to help manage anxiety. Pt is to continue IOP to continue use of healthy coping skills, challenge negative thought patterns and prevent decompensation. Narrative Note: []
--- NOTE | 2020-09-21 09:04 | BH.SGPN.GN ---
Behaviors/Verbalizations/Mental Status: [] Client alert and oriented, casually dressed and groomed. Eye contact good. Motor activity appropriate. Speech within normal limits. Affect congruent, mood euthymic. Thoughts linear, logical, no signs of hallucinations or delusions. Reviewed client?s symptom tracker, no risk for suicidal ideation, plan, or intent as of 09/21/20 Client Response/Progress/Benefit: [] Client responded well to session, attentive, providing supportive feedback and suggestions, and willing to process with group. Client continues to struggle with interrupting fellow participants, though is making improvements in this area. Client reports feeling ?peaceful but also sad? this morning. Shared he is peaceful because he had a calm weekend filled with self-care and healthy interactions with supports. Expressed this is in part due to his parents being out of town as these relationships are often a source of conflict for client. Noted instead spending time with his grandparents and a friend from [employer]. Client shared that upon his parents return he and his father got into an argument which is why he is also feeling sad today. Noted trying to remind himself he can only focus on his own behaviors and does not control how others react. Appeared to benefit from group support and encouragement. Will continue IOP tx to prevent decompensation, continue to improve mood stability, and continue to promote healthy change behaviors. Narrative Note: []
--- NOTE | 2020-09-21 10:10 | BH.SGPN.GN ---
Behaviors/Verbalizations/Mental Status: [] Eye contact is good. Motor activity is restless. Appearance is casual. Speech is Appropriate. Mood is anxious. Affect is congruent. Thoughts are linear and logical. No evidence of psychosis. Client Response/Progress/Benefit: [] Pt was an active participant in group discussion and activity. Attentive during psychoeducation. Provided feedback and insight. Along with group members pt provided insight on definition and benefits of self-care. Benefits that the group was able to identify included; improves relationships, decreases anger and burnout, gives one a sense of identity, improves communication, increases awareness of values/needs, can rejuvenate oneself, helps one be more engaged, improves physical health, and can improve productivity. Pt participated in activity and was able to make connect between experiential group task and self-care. Group processed the activity and identified consequences of neglecting self-care which can include; hospitalization, suicide attempts, lose supports, and poor overall functioning. Benefited from group by increasing awareness of benefits to self-care and consequences of neglecting self-care. Will continue in IOP to maintain safety, increase health coping and social skills, and prevent decompensation. Narrative Note: []
--- NOTE | 2020-09-21 21:31 | BH.MDN ---
Multi-Disciplinary Note - Note 60-min Individual Time Started:: 11:20 Date: 09/21/20 Purpose of session/treatment goals addressed:: Purpose of session was to address goals 1 and 2 from MTP. Eye Contact:: Good Motor Activity:: Appropriate Appearance:: Casual Speech:: Appropriate Mood:: Euthymic Affect:: Congruent Thoughts:: Linear, Logical, No evidence of hallucinations/delusions noted Staff Interventions:: Therapist used open ended questions to elicit pt's current symptoms and stressors. Therapist reviewed treatment progress with pt, discussed barriers to progress. Therapist discussed importance of follow through of goals set during sessions. Therapist elicited goal from pt for the next week. Client Response:: PT reported he had the weekend without his family which was relaxaing. Pt stated he spent time cleaning the house by sweeping, cleaning carpets and doing all the dishes. Pt stated he continues to struggle with having the motivation to clean his own room or to brush his teeth. Pt reported improvement with showering and changing clothes. Pt stated he has not worked on his thought log as provided as homework for two weeks in a row. Pt reported he has not called the two referrals provided for adult autism testig. Pt stated he has hx of not following through with goals and recognizes not using skills outside treatment environment is keeping him stuck. Pt reported his scores on his mid-point DSM 5 survey might be higher because he is anxious about being done with IOP. Pt stated he knows he has made progress with his social skills, improved boundaries, improved impulse control, and decreased lashing out. Pt reported his goals are to call about autism testing and to complete thought log. Risks/Concerns:: denies suicidal/homicidal ideation, plan or intention to date. Progress Toward Goals/Plan:: Progress noted with pt reporting improved interpersonal skills, decreased impulsiveness, improved boundaries, improved mood, and decreased lashing out. Pt continues to struggle with difficulty following through with his goals. Pt to continue IOP to increase consistent use of healthy coping, challenge distorted thoughts and prevent decompensation. Time Stopped:: 11:15
--- NOTE | 2020-09-22 11:05 | BH.SGPN.GN ---
Behaviors/Verbalizations/Mental Status: []Eye contact is fair. Alert and oriented. Motor activity is appropriate. Appearance is casual. grooming is appropriate. Speech is Appropriate. Mood is euthymic. Affect is constricted. Thoughts are linear and logical. No evidence of psychosis or hallucinations. Client Response/Progress/Benefit: []Client was engaged during discussion, did well to complete activity and process with the group. Client was willing to complete the worksheet in which she was challenged to develop a personal SMART goal. Client chose the goal brush teeth at least two times a day, shower daily, and change clothes daily. Client identified his barriers which included: lack of motivation and forgetting. Client stated setting a alarm and reminding self of the benefits of these goals as strategies that could help overcome identified barriers. Benefited from this group by developing a short-term SMART goal related to mental health. Will continue IOP tx to increase healthy coping skills, challenge distorted thoughts and prevent decompensation. Narrative Note: []
--- NOTE | 2020-09-23 09:00 | BH.SGPN.GN ---
Behaviors/Verbalizations/Mental Status: []Client alert and oriented, casually dressed and groomed. Eye contact fair. Motor activity restless- frequently leaving the room. Speech within normal limits. Affect constricted, mood irritable. Thoughts linear, logical, no signs of hallucinations or delusions. Reviewed client?s symptom tracker, no risk for suicidal ideation, plan, or intent as of 09/23/20 Client Response/Progress/Benefit: []Client appeared agitated during group and frequently left the group room. Client also mentioned that he was zoned out several times which interfered with his engagement at times. Client reports feeling exhausted this morning as client stated her spent all day sitting with the uncomfortable yesterday. Client reports his wins are that he has been using grounding skills and he accomplished some house work over the past two days. Client reports on his daily symptom tracker that his functioning and mood are overall the same as they were Monday. Client scored himself moderate/severe (4/5) for anxiety today and he reports that he is sometimes taking his medication as prescribed. Appeared to benefit from gentle thought challenging. Client can continue to benefit from IOP tx to promote healthy coping skills and social skills to improve work and social functioning. Narrative Note: []
--- NOTE | 2020-09-23 10:07 | BH.SGPN.GN ---
Behaviors/Verbalizations/Mental Status: []Client alert and oriented, casually dressed and groomed. Eye contact good. Motor activity restless, appearing distracted by phone throughout group. Speech within normal limits. Affect congruent, mood agitated. Thoughts appearing to being easily distracted as client often asking what? or making off topic comments, no signs of hallucinations or delusions. Client Response/Progress/Benefit: []Pt was engaged in group AEB taking notes and providing input throughout; however, often struggled with becoming distracted by his for or making off-topic or inappropriate comments. Appeared to have difficulties in maintaining focus which may have contributed to difficulties in regulating himself. Pt remained somewhat attentive during psychoeducation and discussed the importance of goal setting with the group, though continued to struggle with inappropriate sarcastic remarks detracting from overall engagement. Pt indicated that ?goals can help us to take more from our accomplishments if we focus on what we learn from them along the way as well?. Group identified potential benefits of having goals include: they motivate, increase self-esteem, and are needed to have progress, help make changes when things aren?t working, create structure, and provide a sense of purpose. Group also worked together to identify barriers to goal setting which included negative self-talk, lack of direction, unrealistic or too broad of goals, and past negative experiences. Pt identified personal barrier to include unrealistic expectations, past negative experiences, and communication issues when trying to share goals with his supports. Benefited from increased awareness of benefits and barriers to goal setting. Progress continues to be impacted by pt difficulties in actively applying skills outside group environment as well as difficulties with self-regulation. Pt will continue in IOP to prevent decompensation, further promote implementation of healthy coping skills, and continue to improve mood stability. Narrative Note: []
--- NOTE | 2020-09-23 11:05 | BH.SGPN.GN ---
Behaviors/Verbalizations/Mental Status: []Eye contact is good. Alert and oriented. Motor activity is appropriate. Appearance is casual. grooming is appropriate. Speech is Appropriate. Mood is euthymic. Affect is full. Thoughts are linear and logical. No evidence of psychosis or hallucinations. Client Response/Progress/Benefit: []Client was engaged during discussion, did well to complete activity and process with the group. Client was willing to complete the worksheet in which was challenged to develop a personal SMART goal. Client was able to create a short term goal that was mental health focused and would help him decrease impulsivity. Client worked on identifying potential barriers that could prevent him from accomplishing identified goal. Accepted feedback and support from others when identifying potential solutions to the barriers. Benefited from this group by developing a short-term SMART goal related to mental health. Will continue IOP tx to decrease impulsivity, improve emotion regulation and prevent decompensation.
--- NOTE | 2020-09-23 13:23 | BH.TPR ---
Treatment Plan Review Date of Admission:: 08/18/20 Date of Treatment Plan Review:: 09/23/20 Admitting Diagnoses:: 1. Major depressive disorder, recurrent, severe without psychosis. 2. Generalized anxiety disorder. 3. ADHD. 4. Rule out Asperger's syndrome. 5. Primary support, legal and work issues Current Diagnoses:: 1. Major depressive disorder, recurrent, severe without psychosis. 2. Generalized anxiety disorder. 3. ADHD. 4. Rule out Asperger's syndrome. 5. Primary support, legal and work issues Patient's Response to Treatment:: Pt is consistent with attendance, contributes positively to group discussions, shows good insight, however doesn't follow through with using his skills. Status of Current Problems and Symptoms: Ongoing problems. Problem #1 Problem Name:: Depression Status of Goals:: Obj 1 - not met. pt is able to identify at least 2 healthy coping skills like opposite action and thought challenge to manage depressive symptoms. Per pt's DSM 5 scores at review he has made a 29% reduction in depressive symptoms. This could be attributed to pt's inconsistent application of skills. Has been provided thought records and homework to complete, but does not do the work. Obj 2 - partially met. Pt has shown progress with improved interpersonal skills like decrease in interrupting others, impulse control, and decrease in saying inappropriate comments to the situation. Pt continues to struggle with boundaries. Team Recommendations:: Team recommends having discussion with pt about not being allowed to have any contact with people that are actively in the IOP program due to pt's continued struggle with boundaries which leads to a distraction from his own treatment and has made others feel uncomfortable. Continue to reinforce importance of follow through of goals. Problem #2 Problem Name:: Anxiety Status of Goals:: Obj 1 - not met. Pt is able to identify calming skills to manage anxiety like breathing and mindfulness but continues to struggle with applying skills. Obj 2 - not met. Per pt's DSM 5 score pt's anxiety has increased by 25%. This could be attributed to pt reporting anxiety about being discharged from [facility] soon. Team Recommendations:: Team recommends continued work on current goal and objectives.
--- NOTE | 2020-09-24 09:00 | BH.SGPN.GN ---
Behaviors/Verbalizations/Mental Status: [] Pt eye contact good, casually dressed, motor activity appropriate, speech normal rate and tone, mood euthymic, congruent affect, thoughts linear and intact, no evidence of delusions or hallucinations. Reviewed client?s symptom tracker, no signs of suicidal ideation, plan, or intent as of today. Client Response/Progress/Benefit: []Pt responded well to session AEB pt listening attentively to others and sharing thoughts and feelings. Pt reports currently having mild depressive symptoms which is a decrease from earlier in the week. Reports decrease in anger and agitation. Continues to report moderate to severe anxious symptoms. Pt reports improvement with overall mood and medication compliance. Pt stated mental health positive as not reacting to one of his dad's unhelpful comments yesterday. Pt reported currently stressed about not being able to find a place that can test him for Autism. Pt seemed to benefit from expressing thoughts and feelings. Pt to continue IOP to improve emotion regulation, improve interpersonal skills and prevent decompensation. Narrative Note: []
--- NOTE | 2020-09-24 10:15 | BH.SGPN.GN ---
Behaviors/Verbalizations/Mental Status: []Client alert and oriented, casually dressed and groomed. Eye contact good. Motor activity appropriate. Speech within normal limits. Affect congruent, mood euthymic. Thoughts linear, logical, no signs of hallucinations or delusions. Client Response/Progress/Benefit: []Pt was an engaged participant, actively provided input and examples during discussion, taking notes, and was attentive during psychoeducation. Did well to remain on-topic and refrain from interrupting fellow participants which is progress. Participated during short activity about automatic thoughts, indicated relating to how automatic thoughts can influence behaviors, mood, self-talk, and relationships with others. Shared that acting on automatic thoughts have caused increased conflict for him in the past. Group was primarily educational; therapist introduced and gave examples of the 10 cognitive distortions. Benefited from education and increased awareness of cognitive distortions and role that they play in negative thoughts and emotions. Provided examples of his own use of mind reading and disqualifying the positive thoughts. Pt reported connecting with the following distortions: all or nothing thinking, jumping to conclusions, overgeneralization, disqualifying the positives, mental filter, and personalization. Shared that distortions have kept him from respecting other?s boundaries reaching out for help, communicating in healthy ways with supports, and using healthy coping skills in the past. Will continue IOP tx to prevent decompensation, continue to promote mood stability and healthy boundaries, and continue to provide a structured and supportive environment. Narrative Note: []
--- NOTE | 2020-09-24 11:15 | BH.SGPN.GN ---
Behaviors/Verbalizations/Mental Status: [] Eye contact is good. Motor activity is appropriate. Appearance is casual. Speech is Appropriate. Mood is anxious. Affect is congruent. Thoughts are linear and logical. No evidence of psychosis. Client Response/Progress/Benefit: [] Pt was an active participant in group discussion and activity. Attentive during psychoeducation on cognitive distortions not discussed in previous group. Pt was an active participant in Cognitive Distortions Jeopardy Engaged in game as patient utilized notes from psychoeducation on cog distortions to answer questions. Able to practice re-framing cog distortions with peers to obtain points for the game. Experiential activity was beneficial as it provided a way for patient to review notes and handouts during psychoeducation to answer questions for the game. Will continue in IOP to increase healthy coping and social skills, prevent decompensation, and stabilize mood. Narrative Note: []
--- NOTE | 2020-09-28 10:05 | BH.SGPN.GN ---
Behaviors/Verbalizations/Mental Status: []Client alert and oriented, casually dressed and groomed. Eye contact good. Motor activity appropriate. Speech within normal limits. Affect congruent, mood euthymic. Thoughts linear, logical, no signs of hallucinations or delusions. Client Response/Progress/Benefit: []Client engaged during session AEB client contributing thoughts throughout discussion and completing worksheet. Connected with discussion on crisis and how coping with external crises by using unhealthy coping skills could result in a personal crisis. Group reflected on the importance of having awareness of personal warning signs in order to prevent reaching crisis point. Group identified potential warning signs for crisis and client completed the personal warning signs worksheet. Client identified personal crisis warning signs to include: racing thoughts, increased impulsiveness, and eating more than usual. Client benefited by increasing awareness of what leads to crisis and personal warning signs. Client will continue IOP to increase consistent application of skills, continue use of interpersonal skills and prevent decompensation. Narrative Note: []
--- NOTE | 2020-09-28 10:08 | BH.SGPN.GN ---
Behaviors/Verbalizations/Mental Status: []Client alert and oriented, casually dressed and groomed. Eye contact good. Motor activity appropriate. Speech circumstantial. Affect constricted, mood irritable. Thoughts linear, logical, no signs of hallucinations or delusions Client Response/Progress/Benefit: []Client responded well to session as evidenced by client listening attentively to others and providing strategies during discussion. Client identified warning signs for crisis and gained further awareness of earliest warning signs. Client created a crisis action plan to help client better manage warning signs for crisis. Client?s action plan for racing thoughts, increased impulsiveness, and eating more than usual included coping skills such as: grounding, earthing, opposite action, reminding himself of consequences and progress. Client stated wanting to also try ASMR to reduce stress and prevent crisis. Client appeared to benefit from creating a crisis action plan and increasing self-awareness. Client to continue IOP tx to improve work-related functioning, increase emotional regulation skills, and reinforce healthy coping skills. Narrative Note: []
--- NOTE | 2020-09-28 10:08 | BH.MDN ---
Multi-Disciplinary Note - Note 45-min Individual Time Started:: 09:05 Date: 09/28/20 Purpose of session/treatment goals addressed:: Purpose of session was to focus on goal 1 from MTP. Eye Contact:: Good Motor Activity:: Appropriate Appearance:: Casual Speech:: Appropriate Mood:: Euthymic Affect:: Congruent Thoughts:: Linear, Logical, No evidence of hallucinations/delusions noted Staff Interventions:: Therapist used open ended questions to elicit pt's current symptoms and stressors. Therapist discussed concerns about new job, reviewed importance of having attainable goals. Therapist reviewed progress on goals set in previous sessions. Collaborated with pt to develop tentative discharge plans. 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 Pt stated he is a little confused because orginially the plan was for him to be part-time. Pt connected with therapist concerns about taking on too much at once. Pt reported he will advocate for himself to be able to have off so he can attend [facility] aftercare program once a week. Pt asked for assistance from therapist to draft a email to his new job. Pt stated he has accomplished one of his goals of changing his clothes everyday this weekend. Pt reported he has been showering every other day, but wants to get to showering daily. Pt stated he is brushing his teeth once a day but wants to brush teeth twice a day. Pt reported in his last two weeks in the program he wants to focus on improving his follow through with goals. Pt stated he continues to struggle with setting a goal but not following through. Risks/Concerns:: Denies suicidal/homicial ideation, plan or intention. Progress Toward Goals/Plan:: Progress noted with pt improved mood, decrased depression, and improved use of skills. Pt continues to struggle with following through on accomplishing his goals which has hindered treatment. Pt to continue IOP to increase consistent use of skills, continue working on interpersonal skills, and prevent decompensation. Time Stopped:: 09:50
--- NOTE | 2020-09-30 09:00 | BH.SGPN.GN ---
Behaviors/Verbalizations/Mental Status: []Client alert and oriented, casually dressed and groomed. Eye contact good. Motor activity appropriate. Speech within normal limits. Affect congruent, mood euthymic. Thoughts linear, logical, no signs of hallucinations or delusions. Reviewed client?s symptom tracker, no risk for suicidal ideation, plan, or intent as of 09/30/20 Client Response/Progress/Benefit: []Client responded well to session, providing positive feedback to peers. Client reports feeling fatigued today, but overall client self-reports his mood is generally better. Client reports he has been completing his daily self-care goals and he spent time with a support yesterday. Client also found a provider to evaluate client for autism. Client reports his stressor is worrying about leaving IOP tx as client is fearful of losing the support. Discussed aftercare options and thought challenged with peers. Client's daily symptom scores were 1/5 for depression, 2/5 for anxiety, and he reports his functioning has been generally the same. Appeared to benefit from connecting with peers and reflecting on growth. Will continue IOP tx to help client transition to full-time employment and to further increase emotional regulation skills. Narrative Note: []
--- NOTE | 2020-09-30 10:15 | BH.SGPN.GN ---
Behaviors/Verbalizations/Mental Status: []Eye contact is good. Motor activity is appropriate, at times restless. Appearance is casual. Speech is mostly appropriate, streuggling with interrupting or making inappropriate comments at times. Mood is anxious, euthymic. Affect is congruent. Thoughts are linear and logical. No evidence of psychosis. Client Response/Progress/Benefit: []Pt was an active participant in group discussion and activity. Attentive during psychoeducation on factors that build resiliency and providing input throughout, at times struggling with restlessness and inattention which impacted overall ability to fully internalize the treatment materials reviewed. Worked with peers to define resilience and shared connecting with the concept of resilience being one?s ability to ?bounce back? in the face of setbacks and stressors. Pt along with peers also identified what could impact personal resilience, which included: environment, learned behaviors and learned coping skills, beliefs, habits, and past experiences. Pt shared an example of having to learn resilience in his home environment when faced with stressors or negative feedback from others. Pt benefited by increasing awareness on the role of resilience in mental health and factors that can help build resiliency. Will continue in IOP to increase impulse control, promote mood stability and healthy coping skill application, and increase healthy support. Narrative Note: []
--- NOTE | 2020-09-30 11:15 | BH.SGPN.GN ---
Behaviors/Verbalizations/Mental Status: []Client alert and oriented, casual dress, hygiene tended to. Eye contact fair. Motor activity appropriate. Speech within normal limits. Affect congruent, mood euthymic. Thoughts linear, logical, no signs of hallucinations or delusions. Client Response/Progress/Benefit: []Client responded well to session AEB contributing to discussion. Client participated in the discussion of how each resiliency component can help increase personal resiliency. Client engaged in activity, working cooperatively with group. Client reported he would like to improve personal resilience by moving towards his goals. Client stated he struggles with following through on his goals. Client struggled with identifying what he can do to keep himself accountable. Receptive to ideas from others. Client seemed to benefit from identifying goal to improve her personal resilience. Will continue IOP to improve daily functioning, increase healthy coping and prevent decompensation. Narrative Note: []
--- NOTE | 2020-10-02 09:00 | BH.SGPN.GN ---
Behaviors/Verbalizations/Mental Status: [] Eye contact is good. Motor activity is appropriate. Appearance is casual. Speech is Appropriate. Mood is euthymic. Affect is full. Thoughts are linear and logical. No evidence of psychosis. Reviewed daily check in sheet and no reports of suicidal ideations or intent. Client Response/Progress/Benefit: [ Pt was an active participant in group discussion. Attentive. Provided appropriate feedback. Emotion for today is stagnant. Daily symptom tracker notes 1/5 for depressed,anxiety, and irritability. He reports a mental health win is no chaos which is weird. Pt reports that he is feeling still with no overwhelming distress or emotions. He notes that being baseline is lame. He discussed how he feels that his life is always filled with some type of internal or external conflict. Group provided feedback on adjusting and accepting the stillness. Reframed this from being lame to being beneficial. Benefited from feedback and support. Progress noted per pt report. Will continue in IOP to maintain gains, prevent decompensation, and increase appropriate social skills. Narrative Note: []
--- NOTE | 2020-10-02 10:10 | BH.SGPN.GN ---
Behaviors/Verbalizations/Mental Status: []Client alert and oriented, casually dressed and groomed. Eye contact good. Motor activity appropriate. Speech within normal limits. Affect constricted, mood content. Thoughts linear, logical, no signs of hallucinations or delusions. Client Response/Progress/Benefit: []Client responded well to session, attentive and participating in discussion. Participated in discussion of things that can keep people feeling trapped or stuck in life including; avoidance, self-doubt, unhealthy coping skills, and fear of rejection. Group discussed the connection between thoughts, emotions, and behaviors as well as how negative thinking can keep a person stuck. Client attentive during psychoeducation on maintenance cycles. Client able to identify negative thoughts that have kept client stuck which included ?no one likes me, I?m alone, and What?s wrong with me.? Appeared to benefit from gaining awareness of how negative thoughts reinforce mental health symptoms and keep people stuck. Will continue IOP tx to reinforce healthy coping skills, increase social skills, and improve daily functioning. Narrative Note: []
--- NOTE | 2020-10-02 11:12 | BH.SGPN.GN ---
Behaviors/Verbalizations/Mental Status: []Client alert and oriented, casually dressed and groomed. Eye contact good. Motor activity appropriate. Speech within normal limits. Affect congruent, mood anxious and euthymic. Thoughts linear, logical, no signs of hallucinations or delusions. Client Response/Progress/Benefit: []Client responded well to session, contributing to discussion and providing supportive feedback. Client appeared to connect with maintenance cycles and recognized how negative thinking can keep a person stuck. Client identified a negative thought that has kept him stuck. Client shared he is able to identify his distorted thoughts afterward but often struggles to identify and challenge them in the moment. Client's thought was I?m alone Client able to connect how this thought maintains depressive cycles and reinforces poor self-esteem, isolation, and loneliness. Client reported when he thinks this way, he feels sad and alone which results in continuing to isolate himself. Client struggled to reframe the thought by himself, but did well to do so when working within the small group setting. Shared he could instead try saying I just might not have the right people in my life and will eventually find someone who appreciates me for me Client shared this thought would improve mental health because it would help client feel more confident, reduce isolation, and try reaching out to others to make new friends. Client appeared to benefit from practicing challenging negative thinking. Will continue IOP tx to maintain gains, further promote healthy change/coping behaviors, and continue to improve thought challenging. Narrative Note: []
--- NOTE | 2020-10-07 09:05 | BH.SGPN.GN ---
Behaviors/Verbalizations/Mental Status: [] Pt eye contact fair, casually dressed, motor activity appropriate, speech normal rate and tone, mood euthymic, congruent affect, thoughts linear and intact, no evidence of delusions or hallucinations. Reviewed client?s symptom tracker, no signs of suicidal ideation, plan, or intent as of today. Client Response/Progress/Benefit: []Pt responded well to session AEB by listening to others and sharing thoughts and feelings. Pt reported positives as getting his second covid shot and starting work on October 19. Pt stated currently feeling stressed about the side effects he is feeling from the covid shot. Pt reported he is continuing to work on his goal of personal hygiene. Pt stated he notes progress with this goal because is more consistently brushing teeth twice a day, changing clothes, and taking a shower. Pt provided positive feedback to peers. Progress noted with pt reporting improved mood and working on his goal. Pt to continue IOP to continue use of healthy coping, maintain boundaries and prevent decompensation. Narrative Note: []
--- NOTE | 2020-10-07 11:20 | BH.SGPN.GN ---
Behaviors/Verbalizations/Mental Status: []Client alert and oriented, casually dressed and groomed. Eye contact good. Motor activity appropriate. Speech within normal limits. Affect constricted, mood agitated. Thoughts linear, logical, no signs of hallucinations or delusions. Client Response/Progress/Benefit: []Pt was engaged throughout AEB participating in discussion and taking notes. Pt provided feedback during the activity and did well to stay calm. Contributed as group brainstormed healthy coping skills for better managing anger which included: deep breathing, counting, exercise, DDD, and taking walks. Pt also gained awareness of costs of unmanaged anger. Pt appeared to benefit from identifying different techniques to manage anger as well as gaining awareness of the costs of anger. Pt has been working on sitting with the uncomfortable and practicing mindfulness skills such as breathing to manage anger and anxiety. Will continue IOP tx to increase emotional regulation skills and provide support as client gets ready to start work. Narrative Note: []
--- NOTE | 2020-10-07 11:49 | PCM.BH.PN_ITS ---
Progress Note Progress Note: History of Present Illness/Interim History: [] The patient is a 20-year-old male with a history of anxiety, depression, ADHD and possible Asperger's syndrome who is seen in follow-up at the [facility] behavioral health IOP program. I last saw the patient almost 1 month ago. The patient states that he feels he is doing a lot better. He feels he is much less depressed and approaching euthymia. He feels he is benefiting from the IOP program and is learning skills to help him keep proper boundaries with others and learning skills to help him notice and follow social cues. He had interviewed for a job and he did get the job that he interviewed for and he starts this job on October 19. 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 He is looking forward to getting back to work. He is also encouraged by the fact that his 2 years of probation are ending on November 07. His sleep remains good. He denies passive thoughts of , suicidal ideation, homicidal ideation, hallucinations or delusions. Current Psychiatric Medications: [] Atomoxetine 40 mg p.o. twice daily; Paxil 30 mg p.o. daily; melatonin chews nightly up to 10 mg Mental Status Examination: [] The patient is a 20-year-old male who appears normal for stated age and is casually dressed and groomed with good hygiene. He is pleasant and cooperative during the interview and has no psychomotor agitation or retardation. Eye contact is good and speech is normal rate and rhythm and fluent with no pressure. Mood is approaching euthymia. Affect is full and normal. Thought process is goal-directed and organized. Thought content: There is no evidence of passive thoughts of , suicidal or homicidal ideation, hallucinations, delusions. Judgment is fair. Insight is fair. Impulsivity is moderate. Diagnoses: [] 1. Major depressive disorder, recurrent, moderate (resolving) 2. Generalized anxiety disorder 3. ADHD 4. Rule out Aspberger's syndrome 5. Primary support, legal and work issues Plan: [] Patient will continue the IOP program as the structure, support, education and group therapy will hopefully prevent worsening of the patient's symptoms. He felt safe during the interview and if it anytime he does not feel safe he will let us know or go to the emergency room. The risks, options, possible complications and side effects of the medications were again discussed with the patient and he understands and accepts these. No medication changes were made today. The patient does not need any refills and medications. He will continue to follow-up with his outpatient providers and if he continues to improve he may be able to discharge in a week or so.
--- NOTE | 2020-10-07 14:32 | BH.MDN ---
Multi-Disciplinary Note - Note 30-min Individual Time Started:: 10:20 Date: 10/07/20 Purpose of session/treatment goals addressed:: Purpose of session was to address goals 1 and 2 from MTP. Eye Contact:: Good Motor Activity:: Appropriate Appearance:: Casual Speech:: Appropriate Mood:: Euthymic Affect:: Full Thoughts:: Linear, Logical, No evidence of hallucinations/delusions noted Staff Interventions:: motivational interviewing, discharge planning, goal setting - and goal review Client Response:: Pt reported he is feeling little nervous about starting work October 19. Pt stated he will be working a 48 hour work week. Pt reported although that is a lot of hours per week he is confident that having something to do each day will help improve his mood. Pt stated he is feeling more hopeful about the future because has a game plan on how he can save enough money to purchase a house next year. Pt stated to be successful at his new job he needs to make sure he stops before he says something. Recognizes if others are making inappropriate jokes that he should not engage because it has led to him being fired in the past. Pt stated also if he is unsure if he should say something then he should probably not say anything. Pt stated he has been working on the goal of personal hygiene. Pt reported he has been able to complete goal besides last night. Pt stated it feels good to be able to consistently achieve his goal. Pt reported he did not follow through with goal of contacting a outpatient therapist for aftercare. Pt reported he will call by Monday. Pt reported he wants to focus on maintaining appropriate boundaries in his last week in IOP. Risks/Concerns:: Denies suicidal/homicidal ideation, plan or intention to date. Progress Toward Goals/Plan:: Progress noted with showing more consistent follow through with his personal hygiene goal, continued work on interpersonal skills and showing improved respect of boundaries. Pt continues to struggle with impulse control. Pt to continue IOP to maintain gains, continue use of healthy coping and prevent decompensation. Plan is for pt to contact outpatient therapist to schedule intake appointment for week after discharge. Time Stopped:: 10:50
--- NOTE | 2020-10-09 09:00 | BH.SGPN.GN ---
Behaviors/Verbalizations/Mental Status: [] Eye contact is good. Motor activity is appropriate. Appearance is casual. Speech is Appropriate. Mood is euthymic. Affect is full. Thoughts are linear and logical. No evidence of psychosis. Reviewed daily check in sheet and no reports of suicidal ideations or intent. Client Response/Progress/Benefit: [] Pt was an active participant in group discussions. Attentive. Emotion for today is relieved and hopeful. Daily symptoms tracker notes 4/5 for anxiety which is not congruent with his emotion. Identified superficial stressors and overall reports that he is managing his emotions effectively. He made some remarks that being stable or not having chaos is boring. Group challenged this perception and pointed out the many benefits that stability and calm can bring to one mentally and physically. He is looking forward to start work in the near future. Progress noted per pt report. Benefited from group support, encouragment, and feedback. Will continue in IOP to maintain gains and prevent decompensation. Narrative Note: []
--- NOTE | 2020-10-09 10:05 | BH.SGPN.GN ---
Behaviors/Verbalizations/Mental Status: []Eye contact is good. Motor activity is appropriate. Appearance is casual. Speech is within normal limits, but interrupting. Mood is euthymic. Affect is congruent. Thoughts are linear and logical. No evidence of psychosis. Client Response/Progress/Benefit: []Pt was an active participant in group discussion AEB taking notes and providing input throughout. Attentive during psychoeducation reviewing internal and external obstacles and provided examples throughout. Participated in the reflection activity in which clients artis pictures depicting their current and desired reality and shared with the group. Pt reflected on his progress highlighting how he used to feel ?like I was in a tunnel of complete darkness? but now pt believes he has strengths to conquer ?any obstacle ahead.? Pt also reflected on strengths he has that will help pt get to his desired reality such as staying in therapy, opposite action, and using grounding. Benefited from group by increasing current awareness and expectations for progress. Will continue IOP tx to further improve work-related functioning. Narrative Note: []
--- NOTE | 2020-10-09 11:10 | BH.SGPN.GN ---
Behaviors/Verbalizations/Mental Status: []Client alert and oriented, casually dressed and groomed. Eye contact good. Motor activity appropriate. Speech within normal limits. Affect congruent. Mood euthymic. Thoughts linear, logical, no signs of hallucinations or delusions. Client Response/Progress/Benefit: []Client engaged during activity and provided ideas on how to cope with internal barriers that keep clients stuck from moving towards goals. Client identified personal barriers to desire reality include: lack of follow through, limited supports, poor emotion regulation, and anxiety about work. Client reported he wants to improve follow through by using opposite action and acknowledging previous wins. Benefited from group by identifying obstacles and solutions to desired reality. Will continue IOP tx to prevent decompensation, improve social interactions, and decrease impulsivity. Narrative Note: []
== END 2020-10-13 23:59 ==
LOC: BHIOP 07:48
PROVIDERS: PCP Family Medicine; Referring Provider Psychiatry & Neurology Psychiatry; Visit Provider Psychiatry & Neurology Psychiatry
DX: F41.1 Generalized anxiety disorder (principal); F90.9 Attention-deficit hyperactivity disorder, unspecified type
CPT/HCPCS: S9480; 90832; 90834; 90837; 90853

== ENCOUNTER 2020-10-15 09:00 | Outpatient (RCR) | payer OTHER, SELFPAY ==
[2020-10-14 00:39] VITALS: BP 140/86; PULSE 100
--- NOTE | 2020-10-15 09:10 | BH.SGPN.GN ---
Behaviors/Verbalizations/Mental Status: [] Eye contact is good. Motor activity is appropriate. Appearance is casual. Speech is Appropriate. Mood is sad. Affect is congruent. Thoughts are linear and logical. No evidence of psychosis. Reviewed daily check in sheet and no reports of suicidal ideations or intent. Client Response/Progress/Benefit: [] Pt participated at times during the group discussion. Attentive. Emotion for today is sad. Pt reports that he is sad b/c today is his last day in IOP. It went faster than I thought. He shared his progress since starting IOP and believes that he gains several coping skills making him more independent and confident. Group on cognitive distortions resonated the most with him. He also took a great deal from group on growth-mindset. He thanked peers and staff. Excited about starting his new job next week and already has aftercare set up. Progress noted while in IOP. Will be discharged this week. Narrative Note: []
--- NOTE | 2020-10-15 10:10 | BH.SGPN.GN ---
Behaviors/Verbalizations/Mental Status: []Eye contact is good. Motor activity is restless. Appearance is casual. Speech is Appropriate. Mood is anxious. Affect is constricted. Thoughts are linear and logical. No evidence of psychosis. Client Response/Progress/Benefit: []Pt participated at times during group discussion, although pt was often giving a negative perspective. Active during group activity. Attentive during psychoeducation. Pt provided insight and feedback during group discussion on how social supports can be similar to a safety net, the importance of social supports, benefits of social supports, and how strong or poor social supports impact our mental health. Worked well with peers in experiential activity and was given a role that required pt to step out of his comfort zone. Benefited from increase awareness of the benefits of social support and the importance of maintain a balanced support system. Will discharge from IOP tx today as client has accomplished his tx goals and no longer meets criteria for IOP level of care. Narrative Note: []
--- NOTE | 2020-10-15 10:21 | BH.DS ---
Discharge Summary - Demographics Date of Admission:: 08/18/20 Discharge Date: 10/15/20 Presenting Problems at Admission:: At admission pt endorsed feeling depressed, hopelessness, worthlessness, decreased sleep, poor motivation, decreased concentration. Pt reported anxious thoughts, ruminations, and racing thoughts. Mental health symptoms have impacted his ability to maintain employment. Pt had lost 10 jobs since graduating from high school. Pt's mental health symptoms impacted his social and familial relationships. Pt had difficulty forming and maintaining healthy connections. Discharge Diagnoses:: 1. Major depressive disorder, recurrent, moderate (resolving) F33.1. 2. Generalized anxiety disorder. 3. ADHD. 4. Rule out Aspberger's syndrome. 5. Primary support, legal and work issues Reason for Discharge:: Pt has made significant treatment progress since starting IOP and no longer meets criteria for [facility] level of care. - Treatment Progress During Treatment & Response: Per pt's DSM 5 cross cutting symptom measure at discharge pt's scores indicate a 71% decrease in depression and an overall 55% decrease in mental health symptoms. Pt's scores do indicate a 25% increase in anxiety which could be attributed to pt's worries about discharging from IOP and starting a new job next week. Pt consistently attended IOP and often was positively engaged in group discussions. Pt struggled with consistently following through with homework and personal goals set. Throughout program pt did struggle with personal boundaries, often needed reminded about the program rules. However, pt did demonstrate improvement with his interpersonal skills AEB pt showing decrease in impulsivity, reduction in inappropriate comments, asking for guidance if his comment was appropriate and listening to others comments. Issues Still to be Addressed:: Pt could benefit from continued work on improving interpersonal skills with a significant focus on respecting boundaries set by others. Pt also could benefit from emotion regulation skills, challenging negative thoughts, improving communication skills, and thinking before he speaks. Discharge Recommendations/Instructions:: Pt provided referral to [facility] for adult Autism testing. Pt had been provided referrals for outpatient counseling and psychiatry but he did not follow through with making appointments. pt was strongly encouraged to establish with outpatient services. Discharge Handout: Complete Discharge Handout with client on aftercare options and continuity of care.
--- NOTE | 2020-10-15 21:20 | BH.MDN_ITS ---
Multi-Disciplinary Note - Note 45-min Individual Time Started:: 11:15 Date: 10/15/20 Purpose of session/treatment goals addressed:: Purpose of session was to identify treatment progress, skills to maintain success, and solidify discharge plans. Eye Contact:: Good Motor Activity:: Appropriate Appearance:: Casual Speech:: Appropriate Mood:: Euthymic Affect:: Congruent Thoughts:: Linear, Logical, No evidence of hallucinations/delusions noted Staff Interventions:: discharge planning, strengths perspective, reviewed DSM-5 Client Response:: Pt reported he is feeling excited to start work next week. Pt stated it will be helpful to have a routine. Pt reported he has noted signficiant treatment progress with decrease in depression, improved ability to set boundaries, decreased impulsivity, improved mindfulness, improved commun ication, and ability to challenge distortions. Pt identified strategies to help him maintain progress include: opposite action, mindfulness, self-care, completing self-care, respecting boundaries of others, and remembering to stop before speaking. Pt stated he has not contacted a new therapist yet but reported he will do so once he gets used to his work schedule. Risks/Concerns:: denies suicidial/homicidal ideation, plan or intention to date. Progress Toward Goals/Plan:: Progress noted with pt reporting decreased depression, decreased impulsivity, improved self-care, and ability to challenge distorted thoughts. Pt continues to struggle with consistently respecting other people's boundaries. Pt did not follow through with recommendation to schedule appointment with a new therapist. Pt will follow up with PCP for medication management. Time Stopped:: 12:00
== END 2020-10-15 13:01 | disposition home or self-care (01) ==
LOC: BHIOP 09:00
PROVIDERS: PCP Family Medicine; Referring Provider Psychiatry & Neurology Psychiatry; Visit Provider Psychiatry & Neurology Psychiatry
DX: F33.2 Major depressive disorder, recurrent severe without psychotic features (principal); F41.1 Generalized anxiety disorder; F90.9 Attention-deficit hyperactivity disorder, unspecified type
CPT/HCPCS: S9480; 90837; 90853

== ENCOUNTER → 2021-08-05 | Outpatient (CLI) | payer OTHER, SELFPAY | END | disposition home or self-care (01) | PROVIDERS: PCP Family Medicine; Visit Provider Family Medicine | DX: R51.9 Headache, unspecified (principal) | CPT/HCPCS: 87635; U0003; U0005 ==

== ENCOUNTER → 2021-10-22 | Outpatient (CLI) | payer OTHER, SELFPAY | END | disposition home or self-care (01) | LOC: LABSPEC 17:22 | PROVIDERS: PCP Family Medicine; Referring Provider Family Medicine; Visit Provider Family Medicine | DX: R19.7 Diarrhea, unspecified (principal) | CPT/HCPCS: 83630; 87177; 87209; 87493; 87506 ==

== ENCOUNTER → 2022-08-15 | Outpatient (CLI) | payer OTHER, SELFPAY ==
[2022-08-15 15:14] LABS: Absolute Lymphocyte Count 1.71 X10^3/uL (0.83-4.51); Absolute Neutrophil Count 4.5 X10^3/uL (2.0-7.7); Basophil# 0.06 X10^3/uL; Basophil% 0.8 % (0-1); Eosinophils% 5.5 % (0-5); Hematocrit 45.2 % (40-54); Hemoglobin 14.7 g/dL (13.0-16.5); Lymphocyte # 1.71 X10^3/ul (0.83-4.51); Lymphocyte % 23.4 % (19-41); Mean Corp Hgb Conc 32.5 g/dL (32-36); Mean Corpuscular Hgb 28.4 pg (27.0-32.0); Mean Corpuscular Volume 87.3 fL (80-94); Mean Platelet Vol. 10.1 fl (6.2-12.0); Monocyte% 8.2 % (0-10); NRBC Flagged by Analyzer 0 % (0-5); Neutrophil # 4.52 X10^3/uL (2.7-7.7); Neutrophil % 61.7 % (47-70); Platelet Count 354 K/mm3 (150-450); RBC Distribution Width CV 13.6 % (11.6-14.6); RBC Distribution Width SD 43.4 fl (35.1-43.9); Red Blood Count 5.18 M/mm3 (4.6-6.2); White Blood Count 7.3 K/mm3 (4.4-11.0)
[2022-08-15 15:51] LABS: Hemoglobin A1c 5.4 % (3.8-5.6)
[2022-08-15 15:54] LABS: Insulin 10.2 mU/L (2.6-37.6)
[2022-08-15 16:14] LABS: ALB/GLOB Ratio 1.1 RATIO (0.9-2.4); AST(SGOT) 13 U/L (15-37); Alanine Aminotransfer ALT/SGPT 28 U/L (16-61); Alkaline Phosphatase 81 U/L (45-117); Anion Gap 5 (5-15); BUN 11 mg/dL (7-18); BUN/Creat Ratio 12.7 RATIO (10-20); Calcium,Total 9.4 mg/dL (8.5-10.1); Chloride 105 mmol/L (98-107); Cholesterol 227 mg/dL (200); Creatinine, Serum 0.86 mg/dL (0.70-1.30); EST Glomerular Filtration Rate 115 mL/min (>60); Est Glom Filt Rate - Afr Amer 139 mL/min (>60); Globulin 3.7 g/dL (2.2-4.2); Glucose 79 mg/dL (74-106); High Density Lipoprotein 42 mg/dL; Potassium 3.6 mmol/L (3.5-5.1); Protein, Total 7.7 g/dL (6.4-8.2); Sodium Level 137 mmol/L (136-145); T4 Free Direct 0.88 ng/dL (0.76-1.46); Thyroid Stim Hormone (TSH) 1.25 uIU/mL (0.358-3.74); Triglycerides 70 mg/dL; Very Low Density Lipoprotein 14 mg/dL (5-40)
== END | disposition home or self-care (01) ==
LOC: BFHLAB 13:16
PROVIDERS: PCP Family Medicine; Referring Provider Family Medicine; Visit Provider Family Medicine
DX: Z00.00 Encounter for general adult medical examination without abnormal findings (principal); R00.0 Tachycardia, unspecified; R61 Generalized hyperhidrosis
CPT/HCPCS: 36415; 80053; 80061; 83036; 83525; 84439; 84443; 85025

== ENCOUNTER → 2022-08-17 | Outpatient (CLI) | payer OTHER, SELFPAY | END | disposition home or self-care (01) | LOC: BFHLAB 10:37 → LABSPEC 10:38 | PROVIDERS: PCP Family Medicine; Referring Provider Family Medicine; Visit Provider Family Medicine | DX: Z00.00 Encounter for general adult medical examination without abnormal findings (principal); R00.0 Tachycardia, unspecified; R61 Generalized hyperhidrosis | CPT/HCPCS: 81050; 82384; 83497 ==

== ENCOUNTER → 2022-08-19 | Outpatient (CLI) | payer OTHER, SELFPAY ==
[2022-08-25 00:07] LABS: 5-HIAA, 24UR 5.1 mg/24 hr (0.0-14.9); 5-HIAA, UR 7.3 mg/L (Undefined)
== END | disposition home or self-care (01) ==
LOC: LABSPEC 13:19
PROVIDERS: PCP Family Medicine; Referring Provider Family Medicine; Visit Provider Family Medicine
DX: Z00.00 Encounter for general adult medical examination without abnormal findings (principal); R00.0 Tachycardia, unspecified; R61 Generalized hyperhidrosis
CPT/HCPCS: 81050; 83497

== ENCOUNTER → 2024-04-08 | Outpatient (CLI) | payer MEDICAID, SELFPAY ==
[2024-04-08 17:48] LABS: Absolute Lymphocyte Count 2.24 X10^3/uL (0.83-4.51); Absolute Neutrophil Count 4.4 X10^3/uL (2.0-7.7); Basophil# 0.08 X10^3/uL; Eosinophil# 0.65 X10^3/uL; Eosinophils% 7.9 % (0-5); Hematocrit 47.5 % (40-54); Hemoglobin 15.4 g/dL (13.0-16.5); Lymphocyte # 2.24 X10^3/ul (0.83-4.51); Lymphocyte % 27.3 % (19-41); Mean Corp Hgb Conc 32.4 g/dL (32-36); Mean Corpuscular Volume 86.4 fL (80-94); Mean Platelet Vol. 10.5 fl (6.2-12.0); Monocyte# 0.78 X10^3/uL; Monocyte% 9.5 % (0-10); NRBC Flagged by Analyzer 0 % (0-5); Neutrophil # 4.41 X10^3/uL (2.7-7.7); Neutrophil % 53.8 % (47-70); Platelet Count 359 K/mm3 (150-450); RBC Distribution Width CV 12.7 % (11.6-14.6); White Blood Count 8.2 K/mm3 (4.4-11.0)
[2024-04-08 18:38] LABS: ALB/GLOB Ratio 1.1 RATIO (0.9-2.4); AST(SGOT) 19 U/L (15-37); Alanine Aminotransfer ALT/SGPT 50 U/L (16-61); Albumin, Serum 4.1 g/dL (3.2-5.0); Alkaline Phosphatase 77 U/L (45-117); Anion Gap 7 (5-15); BUN 13 mg/dL (7-18); Calcium,Total 9.4 mg/dL (8.5-10.1); Chloride 105 mmol/L (98-107); Cholesterol 254 mg/dL (200); Creatinine, Serum 0.86 mg/dL (0.70-1.30); EST Glomerular Filtration Rate 113 mL/min (>60); Est Glom Filt Rate - Afr Amer 137 mL/min (>60); Globulin 3.7 g/dL (2.2-4.2); Glucose 93 mg/dL (74-106); High Density Lipoprotein 40 mg/dL; Potassium 3.6 mmol/L (3.5-5.1); Protein, Total 7.8 g/dL (6.4-8.2); Rheumatoid Factor < 10.0 IU/mL (<15); Sodium Level 140 mmol/L (136-145); T4 Free Direct 0.83 ng/dL (0.76-1.46); Triglycerides 272 mg/dL; Very Low Density Lipoprotein 54 mg/dL (5-40)
[2024-04-08 18:39] LABS: CRP < 2.90 mg/L (0.0-3.0)
[2024-04-08 18:50] LABS: Erythrocyte Sedimentation Rate 9 mm/hr (0-20)
[2024-04-08 19:47] LABS: Hemoglobin A1c 5.4 % (3.8-5.6)
[2024-04-10 13:08] LABS: CCP IgG Antibodies 11 units (0-19)
== END | disposition home or self-care (01) ==
LOC: BFHLAB 15:41
PROVIDERS: PCP Family Medicine; Visit Provider Family Medicine
DX: Z00.00 Encounter for general adult medical examination without abnormal findings (principal); R63.5 Abnormal weight gain; M13.0 Polyarthritis, unspecified
CPT/HCPCS: 36415; 80053; 80061; 82533; 83036; 84439; 84443; 85025; 85652; 86140; 86200; 86431